=== PATIENT | male | born 1990 | race Caucasian/White ===

== ENCOUNTER 2023-02-11 08:09 | Inpatient (IN) | payer BC ==
[~2023-02-11 08:09] MED LIST: Dexamethasone 4 MG/ML SDV ONE; Glycopyrrolate 0.2 MG/ML 5 ML MDV ONE; Neostigmine Methylsulfate 1 MG/ML 5 ML Syringe ONE; Ondansetron 4 MG/2 ML SDV ONE; Propofol 200 MG/20 ML SDV ONE; Rocuronium 50 MG/5 ML Vial ONE; Succinylcholine 200 MG/10 ML MDV ONE; cefOXitin 2 GM Vial ONE; fentaNYL 250 MCG/5 ML SDV ONE
[2023-02-11] MEDS ORDERED: Scopolamine 1.5 MG Transdermal Patch TOP SCH (08:30)
[2023-02-11] MEDS ORDERED: Celecoxib 200 MG Cap PO ONE (08:30)
[2023-02-11 08:42] LABS: HEMATOCRIT 42.8 % (38.4-49.7); HEMOGLOBIN 14.2 g/dL (12.9-16.9); MEAN CORPUSCULAR HEMOGLOBIN 28.2 pg (31.6-35.5); MEAN CORPUSCULAR HGB CONC 33.2 g/dL (31.6-35.5); MEAN CORPUSCULAR VOLUME 84.9 fL (81.4-99.0); RED BLOOD CELL COUNT 5.04 M/uL (4.14-5.76); WHITE BLOOD CELL COUNT,WBC 9.9 K/uL (3.2-11.0)
[2023-02-11 09:11] LABS: HEMOGLOBIN A1C 5.7 % (4.5-6.2)
[2023-02-11 09:14] LABS: A/G RATIO 0.8 (1.2-2.2); ALANINE AMINOTRANSFERASE,ALT 51 U/L (12-78); ALBUMIN 3.2 g/dL (3.4-5.0); ALKALINE PHOSPHATASE 74 U/L (46-116); ASPARTATE AMNIOTRANSFERASE,AST 28 U/L (15-37); BILIRUBIN TOTAL 0.6 mg/dL (0.2-1.0); BLOOD UREA NITROGEN,BUN 17 mg/dL (7-18); CALCIUM 8.2 mg/dL (8.5-10.1); CARBON DIOXIDE,CO2 26 mmol/L (21-32); CHLORIDE,CL 101 mmol/L (100-108); CREATININE 0.8 mg/dL (0.8-1.3); EST CRCL DRUG DOSING (CG) 146.85 mL/min; ESTIMATED GFR 121 mL/min (>60); GLUCOSE RANDOM 113 mg/dL (74-106); MAGNESIUM 1.8 mg/dL (1.8-2.4); POTASSIUM,K 3.9 mmol/L (3.6-5.2); PRO B-TYPE NATRIUR PEPT,BNPPRO 17 pg/mL (5-125); PROTEIN TOTAL,TP 7.2 g/dL (6.4-8.2); SODIUM,NA 138 mmol/L (140-148); TSH ULTRASENSITIVE 3.265 uIU/mL (0.358-3.740)
[2023-02-11 09:15] LABS: ANION GAP 14.9 mmol/L (5.0-14.0)
[2023-02-11] MEDS ORDERED: Dextrose 5%-Lactated Ringers 1,000 ML IV SCH (09:30)
[2023-02-11] MEDS ORDERED: cefOXitin 2 GM in Sodium Chloride 0.9% 50 ML IV ONE (10:00)
[2023-02-11] MEDS ORDERED: Tamsulosin 0.4 MG Cap.ER PO ONE (10:04)
[2023-02-11] MEDS ORDERED: Ketamine 500 MG/5 ML MDV IV SCH (10:15)
[2023-02-11] MEDS ORDERED: Ketamine 23 MG in Sodium Chloride 0.9% 19.77 ML IV SCH (10:15)
[2023-02-11] MEDS ORDERED: fentaNYL 250 MCG/5 ML SDV ONE (10:53)
[2023-02-11] MEDS ORDERED: Rocuronium 50 MG/5 ML Vial ONE ×2 (11:00→11:39)
[2023-02-11] MEDS ORDERED: Labetalol 20 MG/4 ML Syringe ONE (11:21)
[2023-02-11] MEDS ORDERED: fentaNYL 100 MCG/2 ML SDV ONE (12:21)
[2023-02-11] MEDS ORDERED: hydrALAZINE 20 MG/ML SDV ONE (12:31)
[2023-02-11] MEDS ORDERED: Sugammadex Sodium 200 MG/2 ML VIAL ONE (12:50)
[2023-02-11] MEDS ORDERED: Glucagon,Human Recombinant 1 MG Vial IM PRN ×2 (13:41→14:00)
[2023-02-11] MEDS ORDERED: 50% Dextrose in Water 50 ML Syringe IVPUSH PRN ×2 (13:41→14:00)
[2023-02-11] MEDS ORDERED: hydrOXYzine HCL 100 MG/2 ML SDV IM ONE (13:45)
[2023-02-11] MEDS ORDERED: fentaNYL 50 MCG/ML SDV IVPUSH ONE (13:45)
[2023-02-11] MEDS ORDERED: Ondansetron 4 MG/2 ML SDV IVPUSH PRN (14:00)
[2023-02-11] MEDS ORDERED: Insulin Lispro 100 Unit/ML 3 ML KwikPen SUBCUT ONE (14:00)
[2023-02-11] MEDS ORDERED: hydrOXYzine HCL 100 MG/2 ML SDV IM PRN (14:00)
[2023-02-11] MEDS ORDERED: diphenhydrAMINE 50 MG/ML SDV IVPUSH PRN (14:00)
[2023-02-11] MEDS ORDERED: Labetalol 20 MG/4 ML Syringe IVPUSH PRN (14:00)
[2023-02-11] MEDS ORDERED: Metoclopramide 10 MG/2 ML SDV IVPUSH PRN (14:00)
[2023-02-11] MEDS ORDERED: Acetaminophen 500 MG Tab PO PRN (14:00)
[2023-02-11] MEDS: HYDROmorphone 1 MG/ML Syringe IV PRN ×3 (14:26→21:16)
[2023-02-11] MEDS: Lactated Ringers 1,000 ML IV SCH ×2 (14:39→22:55)
[2023-02-11] MEDS: MVI, Adult with Vitamin K 10 ML, Thiamine 200 MG, Zinc/Copper/Manganese/Selenium 1 ML i... IV SCH ×4 (15:54)
[2023-02-11] MEDS: oxyCODONE 5 MG Tab PO PRN (15:54)
[2023-02-11] MEDS ORDERED: Pantoprazole 40 MG Vial IVPUSH SCH (16:00)
[2023-02-11] MEDS: cefOXitin 2 GM in Sodium Chloride 0.9% 50 ML IV SCH ×2 (16:00→22:57)
[2023-02-11] MEDS: Insulin Lispro 100 Unit/ML 3 ML KwikPen SUBCUT SCH ×2 (16:27→22:14)
[2023-02-11] MEDS: Heparin Sodium 5,000 Units/ML Vial SUBCUT SCH (17:06)
[2023-02-11] MEDS: Cyclobenzaprine 10 MG Tab PO PRN (21:16)
[2023-02-11] MEDS: Acetaminophen 500 MG Tab PO SCH (21:21)
[2023-02-12] MEDS: HYDROmorphone 0.5 MG/0.5 ML Syringe IVPUSH PRN ×2 (00:11→03:39)
[2023-02-12] MEDS: Heparin Sodium 5,000 Units/ML Vial SUBCUT SCH ×3 (02:17→18:15)
[2023-02-12] MEDS: oxyCODONE 5 MG Tab PO PRN ×3 (02:18→16:39)
[2023-02-12] MEDS ORDERED: Iopamidol 612 MG/ML 30 ML SDV PO ONE (02:52)
[2023-02-12] MEDS: Insulin Lispro 100 Unit/ML 3 ML KwikPen SUBCUT SCH ×4 (04:10→22:17)
[2023-02-12] MEDS: cefOXitin 2 GM in Sodium Chloride 0.9% 50 ML IV SCH (05:10)
[2023-02-12] MEDS: Acetaminophen 500 MG Tab PO SCH ×3 (05:10→20:44)
[2023-02-12] MEDS: Lactated Ringers 1,000 ML IV SCH (05:12)
[2023-02-12] MEDS ORDERED: Lactated Ringers 1,000 ML IV SCH (08:15)
[2023-02-12] MEDS ORDERED: Ondansetron 4 MG Tab.DIS PO PRN (08:15)
[2023-02-12] MEDS: Celecoxib 200 MG Cap PO SCH ×2 (08:38→20:43)
[2023-02-12] MEDS: Potassium Chloride 20 MEQ Tab.ER PO SCH (08:39)
[2023-02-12] MEDS: Levothyroxine 88 MCG Tab PO SCH (08:39)
[2023-02-12] MEDS: Furosemide 40 MG Tab PO SCH (08:40)
[2023-02-12] MEDS: Lisinopril 20 MG Tab PO SCH (08:40)
[2023-02-12] MEDS: SCOPOLAMINE PATCH CHECK TOP SCH (11:05)
[2023-02-12] MEDS: Cyclobenzaprine 10 MG Tab PO PRN (11:20)
[2023-02-12] MEDS: Pantoprazole 40 MG Delayed-Release Granules 1 Packet PO SCH (16:39)
[2023-02-12] MEDS: MVI, Adult with Vitamin K 10 ML, Thiamine 200 MG, Zinc/Copper/Manganese/Selenium 1 ML i... IV SCH ×4 (17:26)
[2023-02-12] MEDS: traMADol 50 MG Tab PO PRN (20:44)
[2023-02-13] MEDS: Heparin Sodium 5,000 Units/ML Vial SUBCUT SCH ×3 (01:01→17:07)
[2023-02-13] MEDS: traMADol 50 MG Tab PO PRN ×3 (01:04→16:45)
[2023-02-13] MEDS: Insulin Lispro 100 Unit/ML 3 ML KwikPen SUBCUT SCH ×4 (05:46→21:09)
[2023-02-13] MEDS: Acetaminophen 500 MG Tab PO SCH ×3 (06:10→21:09)
[2023-02-13] MEDS: Levothyroxine 88 MCG Tab PO SCH (09:12)
[2023-02-13] MEDS: Lisinopril 20 MG Tab PO SCH (09:13)
[2023-02-13] MEDS: Potassium Chloride 20 MEQ Tab.ER PO SCH (09:13)
[2023-02-13] MEDS: Furosemide 40 MG Tab PO SCH (09:13)
[2023-02-13] MEDS: Celecoxib 200 MG Cap PO SCH ×2 (09:13→21:07)
[2023-02-13] MEDS: SCOPOLAMINE PATCH CHECK TOP SCH (09:15)
[2023-02-13] MEDS: Cyanocobalamin (Vitamin B12) 1,000 MCG/ML SDV IM ONE ×2 (09:15→11:39)
[2023-02-13] MEDS ORDERED: Magnesium Hydroxide 400 MG/5 ML Susp 30 ML Cup PO PRN (11:00)
[2023-02-13] MEDS ORDERED: Magnesium Hydroxide 400 MG/5 ML Susp 30 ML Cup PO ONE (11:00)
[2023-02-13] MEDS: Bisacodyl 5 MG Tab PO SCH ×2 (12:23→21:09)
[2023-02-13] MEDS: Pantoprazole 40 MG Delayed-Release Granules 1 Packet PO SCH (16:34)
[2023-02-13] MEDS: Cyclobenzaprine 10 MG Tab PO PRN (21:11)
[2023-02-14] MEDS: Heparin Sodium 5,000 Units/ML Vial SUBCUT SCH ×2 (02:51→09:22)
[2023-02-14] MEDS: Insulin Lispro 100 Unit/ML 3 ML KwikPen SUBCUT SCH (04:20)
[2023-02-14] MEDS: Acetaminophen 500 MG Tab PO SCH (04:37)
[2023-02-14] MEDS: traMADol 50 MG Tab PO PRN (04:37)
[2023-02-14] MEDS: Levothyroxine 88 MCG Tab PO SCH (09:16)
[2023-02-14] MEDS: Potassium Chloride 20 MEQ Tab.ER PO SCH (09:17)
[2023-02-14] MEDS: Celecoxib 200 MG Cap PO SCH (09:18)
[2023-02-14] MEDS: Bisacodyl 5 MG Tab PO SCH (09:18)
[2023-02-14] MEDS: Furosemide 40 MG Tab PO SCH (09:18)
[2023-02-14] MEDS: Lisinopril 20 MG Tab PO SCH (09:19)
[2023-02-14] MEDS ORDERED: Magnesium Hydroxide 400 MG/5 ML Susp 30 ML Cup PO PRN (10:43)
[2023-02-14] MEDS: Cyclobenzaprine 10 MG Tab PO PRN (10:59)
== END 2023-02-14 11:00 | disposition home or self-care (01) | DRG 403 ==
LOC: JP.SDSSCHI 08:09 → JP.MS 13:05
PROVIDERS: ADMIT Surgery; ATTEND Surgery
PROC: 0DB64Z3 Excision of Stomach, Percutaneous Endoscopic Approach, Vertical (ICD-10-PCS; principal; 2023-02-11)
PROC: 0BQT4ZZ Repair Diaphragm, Percutaneous Endoscopic Approach (ICD-10-PCS; 2023-02-11)
PROC: 0FB04ZX Excision of Liver, Percutaneous Endoscopic Approach, Diagnostic (ICD-10-PCS; 2023-02-11)
DX: E66.01 Morbid (severe) obesity due to excess calories (principal); Z68.45 Body mass index [BMI] 70 or greater, adult; K44.9 Diaphragmatic hernia without obstruction or gangrene; E03.9 Hypothyroidism, unspecified; I10 Essential (primary) hypertension; R16.0 Hepatomegaly, not elsewhere classified; G47.33 Obstructive sleep apnea (adult) (pediatric); F41.8 Other specified anxiety disorders; Z79.899 Other long term (current) drug therapy; Z88.8 Allergy status to other drugs, medicaments and biological substances
CPT/HCPCS: 36415; 74240; 74240-26; 80053; 82947; 83036; 83735; 83880; 84100; 84443; 85027; 86850; 86900; 86901; A9270-GY; C9113; J0131; J0171; J0330; J0360; J0694; J1100; J1170; J1644; J1815; J2405; J2704; J2710; J2795; J3010; J3410; J3411; J3420; J3490; J7120; J7121; Q9967